=== PATIENT | male | born 1975 | race Two or more races ===

== ENCOUNTER 2021-08-04 20:27 | Emergency (ER) | payer OTHER ==
[~2021-08-04] VITALS: Ht 175.3 cm; Wt 142.4 kg
[2021-08-04] MEDS ORDERED: ZESTRIL20 MG PO (20:34)
== END 2021-08-04 22:18 | disposition home or self-care (01) ==
LOC: ER 20:27
DX: V89.2XXA Person injured in unspecified motor-vehicle accident, traffic, initial encounter (principal); Y93.9 Activity, unspecified; Y92.9 Unspecified place or not applicable